=== PATIENT | female | born 1950 | race Caucasian/White ===

== ENCOUNTER 2018-01-19 13:37 | Emergency (ER) | payer MEDICARE, BC, SELFPAY ==
[2018-01-19 13:45] VITALS: BP 146/79; PULSE 96; RESP 16; TEMP 36.4; O2SAT 97
[2018-01-19 13:48] VITALS: RESP 16
--- NOTE | 2018-01-19 14:49 | DI.RAD_ITS ---
SYMPTOMS/DIAGNOSIS: COUGH X 2 WEEKS, SHORTNESS OF BREATH PA AND LATERAL CHEST: The heart is normal in size. The lungs are clear. The mediastinal structures and pleura appear intact. SUMMARY: Normal chest.
--- NOTE | 2018-01-19 15:02 | W.ED.GENAD ---
Discharge Plan Disposition Patient Disposition: HOME Discharge Details Chief Complaint: SOB Clinical Impression: Bronchitis Primary Care Provider: LIZETTE,LOCAL ED Provider: Bentley Locke Home Meds and New Rx's Prescriptions: No Action No Known Home Meds RF: 0 Discharge Instructions Instructions: Acute Bronchitis (ED) Additional Instructions: Please drink plenty of fluid and allow for plenty of rest. Should symptoms not improve over the next couple days, please see her primary care physician or return to the emergency department. Return to the ER for any worsening or new concerning symptoms. Medical Decision Making 15:00 --68-year-old female here with cough persistent over the past 2 weeks. Saturating well no respiratory distress. Lungs clear to auscultation. Screening EKG given recent palpitations reviewed and interpreted by me: Normal sinus rhythm 85 bpm, axis, nondiagnostic. cxr interpreted by radiology: normal Suspect viral uri vs bronchitis. Will have patient follow-up with pcp. Patient understands the importance of timely follow-up. I encouraged her to RTER for worsening or new concerning symptoms. HPI General Mode of arrival: ambulatory. Date/Time Provider Initiated Documentation: 01/19/18 13:49. Limitations to Documentation: no limitations. Information obtained by: patient. HPI Narrative: 68yo f here with chief complaint of cough. Patient notes that over the past 2 weeks she has had persistent, deep, nonproductive cough. 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 Her symptoms started with a sore throat and then developed into cough. She has had some associated shortness of breath as well as body aches, nausea and anorexia. No chest pain and no abdominal pain. No fever. Patient also notes intermittent palpitations and not currently. Related Data Home Medications Medication Instructions Recorded Confirmed Unknown [No Known Home Meds] 01/19/18 01/19/18 Allergies Allergy/AdvReac Type Severity Reaction Status Date / Time No Known Allergies Allergy Unverified 01/19/18 13:48 General Stated Complaint: SOB SPARKLE: 3 Review of Systems Constitutional Reports anorexia, Denies chills and Denies fever(s) Cardiovascular Denies chest pain and Reports palpitations Respiratory Reports as per HPI and Reports cough Gastrointestinal Denies abdominal pain Endocrine Reports palpitations PFSH Social History Smoking/Tobacco Use Status: Never Exam Const General: cooperative and no acute distress HENMT Head: normocephalic and atraumatic Mouth: moist mucous membranes Eyes Conjunctivae: normal conjunctivae Sclera: normal sclerae EOM: EOM intact bilaterally Neck Neck: trachea midline Resp Effort & Inspection: cough Auscultation: clear to auscultation bilaterally, no rales, no rhonchi and no wheezes Cardio Jugular venous pressure: no JVD Rate: regular rate and not tachycardic Rhythm: regular rhythm GI Palpation: soft, not firm, no guarding, no masses, not rigid and nontender Skin General skin exam: no rashes or lesions noted Neuro General: alert, awake, oriented x3 and tone normal Extrem General: no edema Psych Appearance: grossly normal Mental Status: mental status grossly normal Speech and Movement: speech and movement normal Course Vital Signs Temperature 36.4 C L 01/19/18 13:45 Pulse 96 H 01/19/18 13:45 Respiratory Rate 16 01/19/18 13:45 Blood Pressure 146/79 H 01/19/18 13:45 Pulse Oximetry 97 01/19/18 13:45 Temperature 36.4 C L 01/19/18 13:45 Temperature Source Skin 01/19/18 13:45 Pulse 96 H 01/19/18 13:45 Respiratory Rate 16 01/19/18 13:48 Respiratory Effort Non-Labored 01/19/18 13:48 Respiratory Depth Normal 01/19/18 13:48 Respiratory Pattern Normal 01/19/18 13:48 Blood Pressure 146/79 H 01/19/18 13:45 Blood Pressure Position Sitting 01/19/18 13:45 Pulse Oximetry 97 01/19/18 13:45 Oxygen Delivery Method Room Air 01/19/18 13:45 Oxygen Flow Rate 0 01/19/18 13:45 Pain Level 2 01/19/18 13:48
--- NOTE | 2018-01-19 15:05 | ED.GENADUL_ITS ---
Discharge Plan Disposition Patient Disposition: HOME Discharge Details Chief Complaint: SOB Clinical Impression: Bronchitis Primary Care Provider: LIZETTE,LOCAL ED Provider: Bentley Locke Home Meds and New Rx's Prescriptions: No Action No Known Home Meds RF: 0 Discharge Instructions Instructions: Acute Bronchitis (ED) Additional Instructions: Please drink plenty of fluid and allow for plenty of rest. Should symptoms not improve over the next couple days, please see her primary care physician or return to the emergency department. Return to the ER for any worsening or new concerning symptoms. Medical Decision Making 15:00 --68-year-old female here with cough persistent over the past 2 weeks. Saturating well no respiratory distress. Lungs clear to auscultation. Screening EKG given recent palpitations reviewed and interpreted by me: Normal sinus rhythm 85 bpm, axis, nondiagnostic. cxr interpreted by radiology: normal Suspect viral uri vs bronchitis. Will have patient follow-up with pcp. Patient understands the importance of timely follow-up. I encouraged her to RTER for worsening or new concerning symptoms. HPI General Mode of arrival: ambulatory . Date/Time Provider Initiated Documentation: 01/19/18 13:49 . Limitations to Documentation: no limitations . Information obtained by: patient . HPI Narrative: 68yo f here with chief complaint of cough. Patient notes that over the past 2 weeks she has had persistent, deep, nonproductive cough. 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 Her symptoms started with a sore throat and then developed into cough. She has had some associated shortness of breath as well as body aches, nausea and anorexia. No chest pain and no abdominal pain. No fever. Patient also notes intermittent palpitations and not currently. Related Data Home Medications Medication Instructions Recorded Confirmed Unknown [No Known Home Meds] 01/19/18 01/19/18 Allergies Allergy/AdvReac Type Severity Reaction Status Date / Time No Known Allergies Allergy Unverified 01/19/18 13:48 General Stated Complaint: SOB SPARKLE: 3 Review of Systems Constitutional Reports anorexia, Denies chills and Denies fever(s) Cardiovascular Denies chest pain and Reports palpitations Respiratory Reports as per HPI and Reports cough Gastrointestinal Denies abdominal pain Endocrine Reports palpitations PFSH Social History Smoking/Tobacco Use Status: Never Exam Const General: cooperative and no acute distress HENMT Head: normocephalic and atraumatic Mouth: moist mucous membranes Eyes Conjunctivae: normal conjunctivae Sclera: normal sclerae EOM: EOM intact bilaterally Neck Neck: trachea midline Resp Effort & Inspection: cough Auscultation: clear to auscultation bilaterally, no rales, no rhonchi and no wheezes Cardio Jugular venous pressure: no JVD Rate: regular rate and not tachycardic Rhythm: regular rhythm GI Palpation: soft, not firm, no guarding, no masses, not rigid and nontender Skin General skin exam: no rashes or lesions noted Neuro General: alert, awake, oriented x3 and tone normal Extrem General: no edema Psych Appearance: grossly normal Mental Status: mental status grossly normal Speech and Movement: speech and movement normal Course Vital Signs Temperature 36.4 C L 01/19/18 13:45 Pulse 96 H 01/19/18 13:45 Respiratory Rate 16 01/19/18 13:45 Blood Pressure 146/79 H 01/19/18 13:45 Pulse Oximetry 97 01/19/18 13:45 Temperature 36.4 C L 01/19/18 13:45 Temperature Source Skin 01/19/18 13:45 Pulse 96 H 01/19/18 13:45 Respiratory Rate 16 01/19/18 13:48 Respiratory Effort Non-Labored 01/19/18 13:48 Respiratory Depth Normal 01/19/18 13:48 Respiratory Pattern Normal 01/19/18 13:48 Blood Pressure 146/79 H 01/19/18 13:45 Blood Pressure Position Sitting 01/19/18 13:45 Pulse Oximetry 97 01/19/18 13:45 Oxygen Delivery Method Room Air 01/19/18 13:45 Oxygen Flow Rate 0 01/19/18 13:45 Pain Level 2 01/19/18 13:48
== END 2018-01-19 15:28 | disposition home or self-care (01) ==
PROVIDERS: Emergency Provider Student in an Organized Health Care Education/Training Program
DX: J20.9 Acute bronchitis, unspecified (principal); R00.1 Bradycardia, unspecified
CPT/HCPCS: 36415; 93005; 99285; 71046; 93010

== ENCOUNTER 2021-02-10 20:08 | Emergency (ER) | payer MEDICARE, BC, SELFPAY ==
[2021-02-10] VITALS (31 sets, daily range): BP systolic 58–138; BP diastolic 38–103; PULSE 65–118; RESP 12–29; TEMP 36; O2SAT 90–100
--- NOTE | 2021-02-10 20:00 | RT.EKG_ITS ---
APPROVED REPORT Exam: Resting ECG Reason for Exam: chest pain Patient Location: E HR:81 bpm ECG Measurements Heart Rate 81 AXIS MO 189 P 71 QRSd 74 QRS 28 QT 385 T -25 QTc 446 Conclusion Sinus rhythm...normal P axis, V-rate 60- 99 Probable left atrial enlargement...P >50mS, <-0.10mV V1 Anterolateral infarct, acute...ST >0.20mV, V2-V6,I,aVL Physician: Sinus rhythm, rate 81, notable 3 to 4 mm elevation in V2 V3 and V4. With reciprocal depressions in l ead III and aVF, as well as 1 mm elevation in aVL and lead I. Symptoms consistent with STEMI.
--- NOTE | 2021-02-10 20:15 | DI.RAD_ITS ---
Exam(s) XR PORTABLE CHEST AP EXAM: XR PORTABLE CHEST AP CLINICAL HISTORY: chest pain. TECHNIQUE: 2D digital imaging was performed. COMPARISON: CR XR CHEST 2V PA LATERAL from 01/19/2018 FINDINGS: Heart size is upper normal. The mediastinum is not widened. Lungs are clear. No infiltrates nor obvious pleural effusions. Chest leads in place IMPRESSION: No acute pulmonary findings on this single AP portable view of the chest. DATA REPOSITORY: RADIATION DOSE DELIVERED: All CT scans at this facility use at least one of these dose optimization techniques: automated exposure control; mA and/or kV adjustment per patient size (includes targeted e xams where dose is matched to clinical indication); or iterative reconstruction.
[2021-02-10] MEDS: Aspirin 81 MG CHEW 324 MG CH (20:29)
[2021-02-10 20:30] LABS: Abs Immature Grans 0.03 10^3/uL (0.0-0.06); Absolute Basophil Count 0.13 10^3/uL (0.0-0.2); Absolute Eosinophil Count 0.24 10^3/uL (0.0-0.7); Absolute Lymphocyte Count 4.85 10^3/uL (1.2-3.4); Absolute Monocyte Count 0.87 10^3/uL (0.1-0.8); Absolute Neutrophil Count 3.81 10^3/uL (1.2-6.7); Basophils % 1.3; Eosinophils % 2.4; HCT 43.7 % (36.0-46.0); HGB 14.6 g/dL (11.2-15.7); Immature Grans % 0.3; Lymphocytes % 48.8; MCH 30.6 pg (27.0-33.0); MCHC 33.4 % (32.0-36.0); MCV 91.6 fL (80-95); MPV 10.3 fL (8.0-11.0); Monocytes % 8.8; Neutrophils % 38.4; Nucleated RBC 0 %; Platelet Count 263 10^3/uL (130-400); RBC 4.77 10^6/uL (3.93-5.22); RDW-SD 41.2 fL; WBC 9.93 10^3/uL (4.4-10.8)
[2021-02-10] MEDS: nitroGLYcerin 0.4 MG TAB (20:35)
[2021-02-10] MEDS: Atorvastatin 40 MG TAB 80 MG PO (20:35)
[2021-02-10] MEDS: Clopidogrel 300 MG TAB PO ×2 (20:35→20:47)
--- NOTE | 2021-02-10 20:36 | W.ED.GENAD ---
Discharge Plan Disposition Patient Disposition: [facility] Condition: Critical Discharge Details Clinical Impression: ST elevation (STEMI) myocardial infarction Primary Care Provider: Tamra,Local ED Provider: Farhad Caban Home Meds and New Rx's Prescriptions: No Action venlafaxine 75 mg capsule,extended release 24hr 75 mg PO DAILY RF: 0 Medical Decision Making 71-year-old female with no significant past medical history who presents today for chest pain. Over the last week the patient has had on and off chest pain which she thought was just reflux, she took a Tums, and this did not change her symptoms. She denies any exertional dyspnea or generalized shortness of breath. And then today while at dinner she developed sudden onset notable chest heaviness going through her back and into her arms bilaterally. She became diaphoretic, nauseous, vomited and had an episode of loose stool. She was then emergently brought to the ER by her for further assessment. Upon arrival pain is around a 2-3 out of 10. She denies any tearing or ripping sensation. She has never had symptoms like this before. No recent long trips surgeries or procedures. No tobacco abuse. No family history of cardiac disease. No other complaints at this time. Physical exam is relatively unremarkable, blood pressure and heart rate is normal. EKG was ordered and demonstrates evidence of anterior STEMI, reciprocal depressions are noted in the inferior leads which correlates well with symptoms. Bedside ultrasound was performed and slightly surprisingly the patient does show slight wall motion abnormality noted at the apex of the heart. The left ventricle appears to be moving well otherwise. Patient signs and symptoms are clinically consistent with STEMI. Nursing and myself both reviewed risks and benefits of thrombolysis, and also went through the checklist for contraindications, for which she has none. We immediately discussed the findings with cardiology, I spoke with Dr. Hernandez, he agrees with the assessment and plan. Patient will be emergently transferred to [facility]. Here at [facility] the patient was given 324 of chewable aspirin, 3 sublingual nitroglycerin, 600 mg of Plavix, heparin drip, and 40 mg of TNKase, and 80 mg of atorvastatin. Chest pads around the patient at all times out of concern for potential reperfusion dysrhythmia. [facility] will bring the patient to [facility] [employer]. Patient has been accepted for transfer. The entire plan and medications were reviewed with both the patient and her at bedside who is a physician's blood donor unit assistant. They agree with the plan. I have extensively reviewed the treatment plan with the patient. I have addressed all patient concerns at this time. I have also discussed the plan with the admitting physician and they agree with the current assessment and plan and have agreed to assume responsibility for the patient. All parties demonstrate verbal understanding and agreement with our assessment and plan at this time. The documentation in this chart was dictated using SDI dictation software. Please excuse any dictation errors. At time of transfer the patient was reassessed and continued to demonstrate current medical stability. No signs of acute respiratory distress requiring intubation, hemodynamic instability requiring pressor support, or rapidly declining mental status. The patient is stable for transport. 9:57 PM About 15 minutes prior to transfer the patient's blood pressure went notably down to the 50s to 60s systolic. She was given an initial 500 cc bolus, and this change nothing. We started a second 500 cc bolus. I did contact [facility] and again discussed the case with Dr. Perez. Repeat bedside ultrasound was performed, and the patient actually seems to demonstrate better function at the apex of the heart male, and thankfully there is no evidence of gross congestive heart failure on bedside ultrasound. Decision was made to start Levophed and titrate for map of 65. This was started as the patient was transitioning out with [facility] for emergent transfer to [facility]. Patient remained otherwise stable demonstrating normal mentation, normal oxygenation, no signs of altered mental status. EKG 20: 19 Sinus rhythm, rate 81, notable 3 to 4 mm elevation in V2 V3 and V4. With reciprocal depressions in lead III and aVF, as well as 1 mm elevation in aVL and lead I. Symptoms consistent with STEMI. FINDINGS: Lungs: Unremarkable. No consolidation. Pleural spaces: Unremarkable. No pleural effusion. No pneumothorax. Heart/Mediastinum: Unremarkable. No cardiomegaly. Bones/joints: Unremarkable. IMPRESSION: No acute findings. Thank you for allowing us to participate in the care of your patient. Dictated and Authenticated by: Aram Razo MD 02/10/2021 8:46 PM Eastern Time ([place] & [place]) HPI General Date/Time Provider Initiated Documentation: 02/10/21 20:09. HPI Narrative: 71-year-old female with no significant past medical history who presents today for chest pain. Over the last week the patient has had on and off chest pain which she thought was just reflux, she took a Tums, and this did not change her symptoms. She denies any exertional dyspnea or generalized shortness of breath. And then today while at dinner she developed sudden onset notable chest heaviness going through her back and into her arms bilaterally. She became diaphoretic, nauseous, vomited and had an episode of loose stool. She was then emergently brought to the ER by her for further assessment. Upon arrival pain is around a 2-3 out of 10. She denies any tearing or ripping sensation. She has never had symptoms like this before. No recent long trips surgeries or procedures. No tobacco abuse. No family history of cardiac disease. No other complaints at this time. Related Data Home Medications Medication Instructions Recorded Confirmed venlafaxine 75 mg PO DAILY 02/10/21 02/10/21 Allergies Allergy/AdvReac Type Severity Reaction Status Date / Time amoxicillin Allergy Hives Unverified 02/10/21 20:15 General Stated Complaint: Chest Pain SPARKLE: 3 Review of Systems All systems reviewed & are unremarkable except as noted in HPI and below PFSH Social History Smoking/Tobacco Use Status: Never Smoking risk assessment performed?: Yes Alcohol Intake: current Alcohol Intake frequency: 0-2 drinks per day Alcohol type: wine Drug use: Never Do you feel safe at home: Yes Do you feel safe in your relationship?: Yes Exam Narrative Exam Narrative: 1.Const: Well-nourished, Well-developed, appearing stated age 2.Eyes: PERRL, no conjunctival injection, and symmetrical lids. 3.ENT: Atraumatic external nose and ears. Moist MM. Neck: Symmetric, trachea midline, No thyromegaly. 4.CVS: +S1/S2, No murmurs or gallops. Peripheral pulses 2+ and equal in all extremities. Brisk capillary refill in all extremities. Minimal reproducible chest pain in the left ribs. No calf tenderness. 5.RESP: Unlabored respiratory effort. Clear to auscultation bilaterally. No wheezes rales or rhonchi 6.GI: Soft, Nontender/Nondistended, No hepatosplenomegaly. No guarding or rebound. 7.MSK: Normocephalic/Atraumatic, Extremities w/o deformity or ttp No cyanosis or clubbing, Normal movement of all extremities 8.Skin: Warm, Dry. No rashes or lesions. 9.Neuro: pharmaceutical sales II-XII grossly intact. Sensation grossly intact, no focal neurologic deficits. 10.Psych: (AAO) x3. Appropriate mood and affect Course Vital Signs Vital signs: Vital Signs Temperature 36.0 C L 02/10/21 20:11 Pulse 91 H 02/10/21 20:11 Respiratory Rate 18 02/10/21 20:11 Pulse Oximetry 96 02/10/21 20:11 Temperature 36.0 C L 02/10/21 20:11 Temperature Source Skin 02/10/21 20:11 Pulse 91 H 02/10/21 20:11 Respiratory Rate 16 02/10/21 20:15 Respiratory Effort 02/10/21 20:15 Respiratory Depth Normal 02/10/21 20:15 Respiratory Pattern Normal 02/10/21 20:15 Pulse Oximetry 96 02/10/21 20:11 Lab/Test Results Lab/Test Results: Laboratory Tests Range/Units 02/10/21 20:15 WBC (4.4-10.8) 10^3/uL 9.93 RBC (3.93-5.22) 10^6/uL 4.77 Hgb (11.2-15.7) g/dL 14.6 Hct (36.0-46.0) % 43.7 MCV (80-95) fL 91.6 MCH (27.0-33.0) pg 30.6 MCHC (32.0-36.0) % 33.4 RDW (11.7-14.6) % 12.0 Plt Count (130-400) 10^3/uL 263 MPV (8.0-11.0) fL 10.3 Immature Gran % 0.3 Neutrophils % 38.4 Lymphocytes % 48.8 Monocytes % 8.8 Eosinophils % 2.4 Basophils % 1.3 Nucleated RBC % % 0 Absolute Neutrophils (1.2-6.7) 10^3/uL 3.81 Absolute Lymphocytes (1.2-3.4) 10^3/uL 4.85 H Absolute Monocytes (0.1-0.8) 10^3/uL 0.87 H Absolute Eosinophils (0.0-0.7) 10^3/uL 0.24 Absolute Basophils (0.0-0.2) 10^3/uL 0.13 Critical Care Time Critical Care Time Critical Care Time: Yes Total Critical Care Time: 85 Attestation: Upon my evaluation, this patient had a high probability of imminent or life-threatening deterioration, which required my direct attention, intervention, and personal management. I have personally provided 85 minutes of critical care time exclusive of time spent on separately billable procedures. Time includes review of laboratory data, radiology results, discussion with consultants, and monitoring for potential decompensation. Interventions were performed as documented. PAWSS Have you Been Recently Intoxicated or Drunk Within the Last 30 days?: No Have you Ever Experienced Previous Episodes of Alcohol Withdrawal?: No Have you ever Experienced Withdrawal Seizures?: No Have you ever Experienced Delirium Tremens(DT)s?: No Have you ever undergone Alcohol Rehabilitation Treatment (i.e, inpt ot outpatient treatment programs)?: No Have you ever Experienced Blackouts?: No Have you ever Combined Alcohol with other Downers within the last 90 days?: No Have you ever Combined Alcohol with any other Substance of Abuse during the last 90 days?: No Positive Blood Alcohol level on Presentation? [PCS.BAL]: No Evidence of Increased Autonomic Activity (i.e. HR>120, tremor, sweating, agitation, nausea)?: No Result: 0
[2021-02-10] MEDS: nitroGLYcerin 0.4 MG TAB SL ×2 (20:40→20:45)
[2021-02-10] MEDS: Tenecteplase 50 MG KIT (20:45)
--- NOTE | 2021-02-10 20:46 | DI.VRAD_ITS ---
PROCEDURE INFORMATION: Exam: XR Chest Exam date and time: 02/10/2021 8:27 PM Age: 71 years old Clinical indication: Other: Chest pain TECHNIQUE: Imaging protocol: XR of the chest. Views: 1 view. COMPARISON: CR XR CHEST 2V PA LATERAL 01/19/2018 2:44 PM FINDINGS: Lungs: Unremarkable. No consolidation. Pleural spaces: Unremarkable. No pleural effusion. No pneumothorax. Heart/Mediastinum: Unremarkable. No cardiomegaly. Bones/joints: Unremarkable. IMPRESSION: No acute findings. Dictated and Authenticated by: Aram Razo MD. Ordering:JULIA Castro MD
[2021-02-10] MEDS: Ondansetron 4 MG/2 ML VIAL IM (20:56)
[2021-02-10] MEDS: Normal Saline 500 ML IV (21:03)
[2021-02-10 21:23] LABS: Albumin 3.8 g/dL (3.4-5.0); Alkaline Phosphatase 52 U/L (46-116); BUN 31 mg/dL (7-18); Bilirubin, Total 0.6 mg/dL (0.2-1.0); Calcium 9.1 mg/dL (8.5-10.1); Estimated GFR 54.66 (mL/min/1.73m2); Glucose 185 mg/dL (74-106); Potassium 3.5 mmol/L (3.5-5.1); Sodium 142 mmol/L (136-145); Total Protein 7.9 g/dL (6.4-8.2)
[2021-02-10 21:24] LABS: ALT 22 U/L (14-59); AST 21 U/L (15-37); Anion Gap 11.6 mmol/L (3-11); CO2 25.4 mmol/L (21.0-32.0); Chloride 105 mmol/L (98-107); Magnesium 2.4 mg/dL (1.8-2.4)
[2021-02-10 21:25] LABS: Troponin I 0.28 ng/mL (<0.06)
== END 2021-02-10 21:57 | disposition short-term general hospital (02) ==
PROVIDERS: Nurse Practitioner Acute Care; Emergency Provider Student in an Organized Health Care Education/Training Program
DX: I21.3 ST elevation (STEMI) myocardial infarction of unspecified site (principal)
CPT/HCPCS: 36415; 80053; 93005; 96361; 96365; 96366; 96368; 96375; 96376; 99291; 99292; 71045; 83735; 84484; 85025; 85610; 85730; 93010; J2405; J3101

== ENCOUNTER 2021-03-25 15:15 | Outpatient (RCR) | payer MEDICARE, BC, SELFPAY | END 2021-04-03 23:59 | disposition home or self-care (01) | LOC: CR 15:15 | PROVIDERS: Visit Provider Family Medicine ==

== ENCOUNTER 2021-05-04 08:00 | Outpatient (RCR) | payer MEDICARE, SELFPAY | END 2021-05-04 23:59 | disposition home or self-care (01) | LOC: CR 08:00 | PROVIDERS: Visit Provider Family Medicine | DX: Z51.89 Encounter for other specified aftercare (principal); I25.2 Old myocardial infarction; Z95.5 Presence of coronary angioplasty implant and graft | CPT/HCPCS: S9472 ==

== ENCOUNTER 2021-06-01 08:00 | Outpatient (RCR) | payer MEDICARE, SELFPAY | END 2021-06-01 23:59 | disposition home or self-care (01) | LOC: CR 08:00 | PROVIDERS: Visit Provider Family Medicine | DX: I25.2 Old myocardial infarction (principal); Z95.5 Presence of coronary angioplasty implant and graft; Z51.89 Encounter for other specified aftercare | CPT/HCPCS: S9472 ==

== ENCOUNTER 2021-07-01 08:00 | Outpatient (RCR) | payer MEDICARE, SELFPAY | END 2021-07-02 23:59 | disposition home or self-care (01) | LOC: CR 08:00 | PROVIDERS: Visit Provider Family Medicine | DX: Z51.89 Encounter for other specified aftercare (principal); I25.2 Old myocardial infarction; Z95.5 Presence of coronary angioplasty implant and graft | CPT/HCPCS: S9472 ==

== ENCOUNTER 2021-07-31 08:00 | Outpatient (RCR) | payer MEDICARE, SELFPAY | END 2021-08-01 23:59 | disposition home or self-care (01) | LOC: CR 08:00 | PROVIDERS: Visit Provider Internal Medicine Cardiovascular Disease | DX: Z51.89 Encounter for other specified aftercare (principal); I25.2 Old myocardial infarction; Z95.5 Presence of coronary angioplasty implant and graft | CPT/HCPCS: S9472 ==

== ENCOUNTER 2021-08-07 08:00 | Outpatient (RCR) | payer MEDICARE, SELFPAY | END 2021-09-01 23:59 | disposition home or self-care (01) | LOC: CR 08:00 | PROVIDERS: Visit Provider Internal Medicine Cardiovascular Disease | DX: Z51.89 Encounter for other specified aftercare (principal); I25.2 Old myocardial infarction; Z95.5 Presence of coronary angioplasty implant and graft | CPT/HCPCS: S9472 ==

== ENCOUNTER → 2023-03-30 00:55 | Outpatient (CLI) | payer MEDICARE, SELFPAY ==
--- NOTE | 2023-03-30 | DI.MAMMO_ITS ---
Exam(s) MAMMO SCREENING EXAM: MAMMO SCREENING CLINICAL HISTORY: SCREENING, Z12.31. TECHNIQUE: Bilateral full field digital CC and MLO mammographic images were obtained with 3D tomosyn thesis and utilizing computer aided detection (CAD). COMPARISON: Prior outside mammogram 07/15/2021 reviewed. FINDINGS: There has been no significant change in the appearance and distribution of the fibroglandular tissue. No CAD designations. There are no new spiculated masses nor malignant appearing microcalcification groups. There is no significant architectural distortion nor skin thickening-retraction. IMPRESSION: No radiographic evidence of malignancy. BI-RADS Category 1 - Negative Breast Density - Category B - Scattered areas of fibroglandular density Breast density Category C or D implies that the patient has dense breast tissue. Dense breast tissue can make it harder to find cancer on a mammogram. Dense breast tissue is also associated with an incr eased risk of breast cancer. This information about the result of the mammogram report was provided to the patient to raise their awareness. Use this report when you speak with the patient about their risks for breast cancer, which includes their family history. At that time, you may recommend additional screening tests (Ultrasoun d or MRI) as these tests may add significant information. A negative radiographic report should not delay biopsy if a dominant or clinically suspicious mass is present. Up to ten percent of cancers are not identified on mammography. A negative report may reinforce clinical impression. Adenosis and dense breasts may obscure an underlying neoplasm. False positive reports average 6 to 10%. Patient will receive a letter notifying them of these results.
== END ==
PROVIDERS: Visit Provider Family Medicine
DX: Z12.31 Encounter for screening mammogram for malignant neoplasm of breast (principal)
CPT/HCPCS: 77063; 77067

== ENCOUNTER 2023-06-21 12:08 | Emergency (ER) | payer MEDICARE, SELFPAY ==
[2023-06-21 12:11] VITALS: BP 133/71; PULSE 81; RESP 18; TEMP 36.7; O2SAT 98
--- NOTE | 2023-06-21 12:38 | ED.GENADUL_ITS ---
Discharge Plan Disposition Patient Disposition: Home Condition: Good Discharge Details Clinical Impression: Shingles Primary Care Provider: Unknown,Unknown ED Provider: Nidia Lopez Home Meds and New Rx's Prescriptions: New valacyclovir 1 gram tablet 1,000 mg PO TID 10 Days Qty: 30 0RF lidocaine [LMX 4] 4 % cream 1 applic topical QID PRN (Reason: pain) Qty: 15 0RF Continued venlafaxine 75 mg capsule,extended release 24hr 75 mg PO DAILY Patient Comments: TAKE 1 CAPSULE BY MOUTH EVERY MORNING metoprolol succinate 50 mg Tablet Extended Release 24 Hr 50 mg PO DAILY clopidogrel 75 mg Tablet 75 mg PO DAILY losartan 25 mg Tablet 25 mg PO DAILY aspirin 81 mg Tablet,Chewable 81 mg PO DAILY furosemide 20 mg Tablet 20 mg PO PRN PRN rosuvastatin 20 mg Tablet 20 mg PO DAILY Discharge Instructions Instructions: Shingles (ED) Additional Instructions: Your exam is concerning for shingles outbreak. Please take the antiviral as prescribed. You may use Tylenol and/or ibuprofen as needed for discomfort. A prescription for topical lidocaine has also been sent, this may help you get some rest and help with pain. Please keep the area clean. Monitor for worsening symptoms and seek care urgently if these develop. Wash your hands frequently. Please keep your upcoming primary care appointment. Discharge Data Discharge Date/Time-TO BE ENTERED AT DEPARTURE: 06/21/23 13:48 HPI General Date/Time Provider Initiated Documentation: 06/21/23 12:23 . Limitations to Documentation: no limitations . Information obtained by: patient and RN notes reviewed . History of Present Illness 73 year old F presents to the emergency department with the chief complaint of lesions to left side of labia, extending to buttock region, described as severe, Quality is described as burning, and is localized to the genitals and buttocks. Patient reports no radiation. Patient started experiencing this day(s) (3) and it has been constant. No relieving factors improve symptom(s), No exacerbating factors reported . Patient notes fever/chills (had fevers initially, these have resolved) and rash; denies chest pain, cough, loss of appetite, nausea/vomiting and shortness of breath. Patient did receive the following treatments prior to arrival, none Related Data Home Medications Medication Instructions Recorded Confirmed venlafaxine 75 mg capsule,extended 75 mg PO DAILY 02/10/21 06/21/23 release 24 hr aspirin 81 mg chewable tablet 81 mg PO DAILY 06/15/21 06/21/23 clopidogrel 75 mg tablet 75 mg PO DAILY 06/15/21 06/21/23 furosemide 20 mg tablet 20 mg PO PRN PRN 06/15/21 06/21/23 losartan 25 mg tablet 25 mg PO DAILY 06/15/21 06/21/23 metoprolol succinate 50 mg 50 mg PO DAILY 06/15/21 06/21/23 tablet,extended release 24 hr rosuvastatin 20 mg tablet 20 mg PO DAILY 06/15/21 06/21/23 lidocaine 4 % topical cream (LMX 4) 1 applic topical QID PRN pain #15 06/21/23 grams valacyclovir 1 gram tablet 1,000 mg PO TID 10 days #30 tabs 06/21/23 Previous Rx's Medication Instructions Recorded lidocaine 4 % topical cream (LMX 4) 1 applic topical QID PRN pain #15 06/21/23 grams valacyclovir 1 gram tablet 1,000 mg PO TID 10 days #30 tabs 06/21/23 Allergies Allergy/AdvReac Type Severity Reaction Status Date / Time amoxicillin Allergy Hives Unverified 06/21/23 12:24 General Stated Complaint: RashLesion SPARKLE: 4 Review of Systems Constitutional Constitutional: Reports as per HPI and Denies poor appetite Cardiovascular Cardiovascular: Denies chest pain Respiratory Respiratory: Denies cough Gastrointestinal Gastrointestinal: Denies abdominal pain, Denies change in bowel habits, Denies nausea and Denies vomiting Genitourinary Genitourinary: Reports as per HPI Musculoskeletal Musculoskeletal: Reports as per HPI and Denies back pain Integumentary/Breasts Skin/Breast: Reports as per HPI Exam Const General: cooperative, healthy appearing, comfortable, no acute distress, well developed and well groomed Nutritional Appearance: average body habitus and well nourished Orientation: alert and awake Resp Effort & Inspection: normal respiratory effort and no respiratory distress Auscultation: clear to auscultation bilaterally, no rales, no rhonchi and no wheezes Cardio Rate: regular rate Rhythm: regular rhythm Heart Sounds: S1 normal and S2 normal Female genitals images: 2 1. area of rash and burning sensation. Does not extend onto the mucous membranes. Does not cross midline. Scattered vesicular lesions clumped together. These are slightly and are not completely coalesced. Neuro General: patient alert and patient awake Cognition: normal cognition Speech: speech normal Gait: normal gait Course Vital Signs Vital signs: Vital Signs Temperature 36.7 C 06/21/23 12:11 Pulse 81 06/21/23 12:11 Respiratory Rate 18 06/21/23 12:11 Blood Pressure 133/71 06/21/23 12:11 Pulse Oximetry 98 06/21/23 12:11 Temperature 36.7 C 06/21/23 12:11 Temperature Source Oral 06/21/23 12:11 Pulse 81 06/21/23 12:11 Respiratory Rate 18 06/21/23 12:11 Respiratory Effort Normal, Non-Labored 06/21/23 12:31 Blood Pressure 133/71 06/21/23 12:11 Pulse Oximetry 98 06/21/23 12:11 Oxygen Delivery Method Room Air 06/21/23 12:11 Oxygen Flow Rate 0 06/21/23 12:11 Pain Level 8 06/21/23 12:31 Medical Decision Making Patient is a pleasant 73-year-old female with past medical history significant for ischemic cardiomyopathy, presenting today with chief complaint of rash to the left side of her genitals. She reports that 4 days ago she got her COVID booster, that night had some malaise and fevers. The next day began having some pain along the left side of her generals with 2 small blisters. By the end of the day, more blisters had presented on the left side. This is continued to spread. She is been using acetaminophen to help with discomfort. Blistering essentially from the left labia towards the left buttock region. Has never had lesions like this historically. Has not been sexually active in the past 10 years. No trauma to this area. Denies any changes or difficulty with urination or bowel movements. Initially had fevers but these have subsided. Received one dose of the shingles vaccine. She did have chickenpox as a child.No pain or difficulty with BM or urination. On exam, patient appears nontoxic. She does appear uncomfortable when she is moving or trying to sit. She has a rash with vesicular lesions on the left side of the genitals extending from left labia to the buttock. These are scattered vesicular lesions. No evidence to suggest overlying cellulitis. No area of fluctuance or firmness to suggest abscess. This does not extend to the mucous membranes. Exam most consistent with shingles. Will treat with antiviral, within the 72 hr window and patients rash is worsening. Will treat with Valacyclovir. Have reached out to pharmacy regarding topical regiment to help with discomfort. She has not had episode like this historically, no sexual partners. Not consistent with genital herpes and very well-demarcated along the left side consistent with shingles and dermatomal in nature. Discussed this with the patient. Will begin her on valacyclovir. Encourage hydration. We discussed supportive care to help with discomfort. She has an appointment with primary care in 2 days, encouraged that she keep this for reevaluation particularly given the risk of overriding bacterial infection and secondary complications. Return precautions were discussed. All of her questions and concerns were addressed and she is in agreement this plan. Spoke with pharmacy, they advised some Lidocaine cream if needed. This may help her get some sleep. Quality:SDOH Health Related Social Needs: 2 No Data to Display PFSH All Active Problems (Updated 06/21/23 @ 13:00 by KASH Veras) Shingles (Acute) ST elevation (STEMI) myocardial infarction (Acute) Medical History (Updated 06/21/23 @ 13:00 by KASH Veras) Ischemic cardiomyopathy Surgical History (Updated 06/15/21 @ 14:17 by Serina Galaviz) History of heart artery stent (02/10/21) PCI w/ TJ to LAD Social History Smoking/Tobacco Use Status: Never Smoking risk assessment performed?: Yes Alcohol Intake: current Alcohol Intake frequency: 0-2 drinks per day Alcohol type: wine Drug use: Never Housing: house Do you feel safe at home: Yes Do you feel safe in your relationship?: Yes PAWSS Have you Been Recently Intoxicated or Drunk Within the Last 30 days?: No Have you Ever Experienced Previous Episodes of Alcohol Withdrawal?: No Have you ever Experienced Withdrawal Seizures?: No Have you ever Experienced Delirium Tremens(DT)s?: No Have you ever undergone Alcohol Rehabilitation Treatment (i.e, inpt ot outpatient treatment programs)?: No Have you ever Experienced Blackouts?: No Have you ever Combined Alcohol with other Downers within the last 90 days?: No Have you ever Combined Alcohol with any other Substance of Abuse during the last 90 days?: No Positive Blood Alcohol level on Presentation? [PCS.BAL]: No Evidence of Increased Autonomic Activity (i.e. HR>120, tremor, sweating, agitation, nausea)?: No Result: 0
== END 2023-06-21 13:48 | disposition home or self-care (01) ==
PROVIDERS: Emergency Provider Physician Assistant
DX: B02.9 Zoster without complications (principal); I25.10 Atherosclerotic heart disease of native coronary artery without angina pectoris; I25.2 Old myocardial infarction; Z95.5 Presence of coronary angioplasty implant and graft; Z79.01 Long term (current) use of anticoagulants; Z79.82 Long term (current) use of aspirin
CPT/HCPCS: 99283

== ENCOUNTER 2023-12-22 11:16 | Outpatient (REF) | payer MEDICARE, SELFPAY | END 2023-12-22 11:17 | disposition home or self-care (01) | LOC: LBN 11:16 | PROVIDERS: PCP Nurse Practitioner Family; Visit Provider Nurse Practitioner Family | DX: R82.998 Other abnormal findings in urine (principal); R39.15 Urgency of urination; B96.89 Other specified bacterial agents as the cause of diseases classified elsewhere | CPT/HCPCS: 87086 ==

== ENCOUNTER 2024-01-27 01:45 | Outpatient (CLI) | payer MEDICARE, SELFPAY ==
[2024-01-27 09:32] LABS: Creatine Kinase 130 U/L (26-192)
[2024-01-27 09:43] LABS: ALT 24 U/L (14-59); AST 23 U/L (15-37); Albumin 3.6 g/dL (3.4-5.0); Alkaline Phosphatase 55 U/L (46-116); Anion Gap 5.5 mmol/L (3-11); BUN 20 mg/dL (7-18); Bilirubin, Total 0.89 mg/dL (0.2-1.0); CO2 31.5 mmol/L (21.0-32.0); CREATININE 0.9 mg/dL (0.55-1.02); Calcium 9.7 mg/dL (8.5-10.1); Calculated LDL 64 mg/dL (<100); Chloride 107 mmol/L (98-107); Cholesterol 164 mg/dL (<200); Estimated GFR 67.08 (mL/min/1.73m2); Glucose 101 mg/dL (74-106); HDL Cholesterol 85 mg/dL (40-60); Potassium 4.4 mmol/L (3.5-5.1); Sodium 144 mmol/L (136-145); Total Protein 8.1 g/dL (6.4-8.2); Triglyceride 75 mg/dL (<150)
== END 2024-01-27 01:46 | disposition home or self-care (01) ==
LOC: LBO 01:45
PROVIDERS: PCP Nurse Practitioner Family; Referring Provider Nurse Practitioner Family; Visit Provider Nurse Practitioner Family
DX: I21.3 ST elevation (STEMI) myocardial infarction of unspecified site (principal)
CPT/HCPCS: 36415; 80053; 80061; 82550

== ENCOUNTER 2024-09-10 01:36 | Outpatient (CLI) | payer MEDICARE, SELFPAY ==
--- NOTE | 2024-09-10 07:15 | DI.DEXA_ITS ---
Exam(s) XR DEXA BONE DENSITY W/WO RAUL EXAM: XR DEXA BONE DENSITY W/WO RAUL CLINICAL HISTORY: screening for osteoporosis in postmenopausal status,z78.0 TECHNIQUE: Routine DEXA evaluation of the lumbar spine, hip, or forearm. COMPARISON: No exams were available for comparison FINDINGS: Performed on a Hologic unit. Lateral image: No compression fractures evident Lumbar Spine total T-score: -1.8 which is osteopenia range. Hip total T-score:-1.0 which is normal range Independent reading at the level of the femoral neck yields T-score of -1.0 which is normal range. Forearm total T-score: -1.1 which is osteopenia range IMPRESSION: Bone mineral density measures in the osteopenia range. Fracture risk is moderate. Note: Any spine fracture indicates 5x risk for subsequent spine fracture and 2x risk for subsequent h ip fracture. World Health Organization criteria for BMD interpretation classify patients: Normal...... T- Score at or above -1.0 Osteopenic... T- Score between -1.0 and -2.5 Osteoporosis... T-Score at or below -2.5
== END 2024-09-10 01:56 ==
LOC: DI 01:36
PROVIDERS: PCP Nurse Practitioner Family; Visit Provider Nurse Practitioner Family
DX: Z78.0 Asymptomatic menopausal state (principal); Z13.820 Encounter for screening for osteoporosis; M85.88 Other specified disorders of bone density and structure, other site
CPT/HCPCS: 77080